=== PATIENT | female | born 1965 | race Caucasian/White ===

== ENCOUNTER 2023-10-20 01:55 | Inpatient (IN) | payer MEDICAID, OTHER ==
[2023-10-20] VITALS (7 sets, daily range): BP systolic 97–128; BP diastolic 51–96; PULSE 98–104; RESP 25–31; TEMP 97.4–97.7
[~2023-10-20] VITALS: Ht 162.6 cm; Wt 107.6 kg
[2023-10-20 03:15] LABS: MEAN CORPUSCULAR HEMOGLOBIN 23.1 pg (28.0-32.0); MEAN CORPUSCULAR HGB CONC 28.7 g/dL (31.0-37.0); MEAN CORPUSCULAR VOLUME 80.5 fL (81.0-99.0); MEAN PLATELET VOLUME 7.9 fl (7.4-10.4); PLATELET 371 x1000/uL (130-400); RED CELL DISTRIBUTION WIDTH 20.4 % (11.6-14.6); WHITE BLOOD COUNT 33.6 x1000/uL (4.5-11.0)
[2023-10-20 03:23] LABS: DIFFERENTIAL COMMENT 1; HEMATOCRIT. 18.5 % (36.0-48.0); HEMOGLOBIN. 5.3 g/dL (12.0-16.0)
[2023-10-20 03:25] LABS: INR 1.3; PROTHROMBIN TIME 13.8 sec (9.6-11.0)
[2023-10-20 03:27] LABS: CHLORIDE 107 mEq/L (98-107); SODIUM 134 mEq/L (136-145)
[2023-10-20 03:29] LABS: CALCIUM 7.7 mg/dL (8.7-10.4)
[2023-10-20 03:32] LABS: HCG SCREEN NEGATIVE
[2023-10-20 03:33] LABS: GLUCOSE 59 mg/dL (70-105)
[2023-10-20 03:35] LABS: ALANINE AMINOTRANSFERASE 146 IU/L (10-49); ALBUMIN 2.7 g/dL (3.2-4.8); ASPARTATE AMINOTRANSFERASE 298 IU/L (<34)
[2023-10-20 03:36] LABS: BILIRUBIN TOTAL 0.2 mg/dL (0.1-1.0); PROTEIN TOTAL 6.5 g/dL (6.0-8.3)
[2023-10-20 04:05] LABS: ETHANOL BLOOD < 10 mg/dL (<10)
[2023-10-20 04:17] LABS: ANISOCYTOSIS 1+; HYPOCHROMASIA 1+; MICROCYTOSIS 1+; PLATELET ESTIMATE NORMAL
[2023-10-20 04:19] LABS: LACTIC ACID 4.8 mmol/L (0.4-2.0); UREA NITROGEN BLOOD 108 mg/dL (9-23)
[2023-10-20 04:20] LABS: CARBON DIOXIDE < 10 mEq/L (21-32); CREATININE 8.3 mg/dL (0.6-1.0); POTASSIUM 6.5 mEq/L (3.5-5.1)
[2023-10-20] MEDS: MORPHINE SULFATE 4 MG/ML INJ (FOR IV/IM USE) IV ONE (04:27)
[2023-10-20] MEDS: MORPHINE SULFATE 4 MG/ML INJ (FOR IV/IM USE) IV NR (04:42)
[2023-10-20] MEDS: SODIUM BICARBONATE 8.4% 1 MEQ/ML 50ML SYR IV NR ×2 (04:47→16:38)
[2023-10-20] MEDS: PIPERACILLIN/TAZO 3.375G/50ML 50 ML IV SCH ×2 (05:07→18:36)
[2023-10-20] MEDS: SODIUM CHLORIDE 0.9% 1,000 ML IV ONE (05:21)
[2023-10-20] MEDS: VANCOMYCIN 1.5GM/250ML 250 ML IV NR (06:05)
[2023-10-20] MEDS ORDERED: CALCIUM GLUCONATE 100MG/ML 10ML VIAL IV ONE (07:30)
[2023-10-20] MEDS: CALCIUM GLUCONATE 1GM PREMIX 50 ML IV NR ×2 (09:08→16:30)
[2023-10-20] MEDS: DEXTROSE 50% WATER 50ML SYRINGE IV NR ×2 (09:57→16:36)
[2023-10-20] MEDS: INSULIN REGULAR (HUMULIN R) 300UNITS/3ML VIAL IV ONE (10:08)
[2023-10-20] MEDS: SODIUM POLYSTYRENE SULFONATE 15 G/60 ML BOT PO NR (10:09)
[2023-10-20] MEDS ORDERED: NALOXONE HCL 0.4MG/ML VIAL IV PRN (12:15)
[2023-10-20] MEDS ORDERED: CLONIDINE 0.1MG TABLET PO PRN (12:15)
[2023-10-20 13:26] LABS: MEAN CORPUSCULAR HEMOGLOBIN 24.7 pg (28.0-32.0); MEAN CORPUSCULAR HGB CONC 30.3 g/dL (31.0-37.0); MEAN CORPUSCULAR VOLUME 81.5 fL (81.0-99.0); PLATELET 337 x1000/uL (130-400); RED CELL DISTRIBUTION WIDTH 20.4 % (11.6-14.6); WHITE BLOOD COUNT 27.6 x1000/uL (4.5-11.0)
[2023-10-20 13:39] LABS: HEMATOCRIT 20.4 % (36.0-48.0); HEMOGLOBIN 6.2 g/dL (12.0-16.0)
[2023-10-20 13:42] LABS: CHLORIDE 108 mEq/L (98-107); POTASSIUM 5.8 mEq/L (3.5-5.1); SODIUM 137 mEq/L (136-145)
[2023-10-20 13:43] LABS: CALCIUM 7.1 mg/dL (8.7-10.4)
[2023-10-20 13:48] LABS: GLUCOSE 58 mg/dL (70-105)
[2023-10-20 13:49] LABS: CREATININE 8.1 mg/dL (0.6-1.0); UREA NITROGEN BLOOD 111 mg/dL (9-23)
[2023-10-20 13:52] LABS: CARBON DIOXIDE < 10 mEq/L (21-32)
[2023-10-20 15:05] LABS: CREATINE KINASE 950 IU/L (34-145)
[2023-10-20 15:20] LABS: HEPATITIS B SURFACE ANTIGEN NEGATIVE (Negative)
[2023-10-20 15:41] LABS: HEPATITIS A AB IGM NEGATIVE (Negative)
[2023-10-20 15:42] LABS: HEPATITIS B CORE AB IGM NEGATIVE (Negative); HEPATITIS C AB REACTIVE (Pos) (Negative)
[2023-10-20] MEDS: INSULIN REGULAR (HUMULIN R) 300UNITS/3ML VIAL IV NR (16:34)
[2023-10-20] MEDS: VANCOMYCIN 500MG PREMIX 100 ML IV SCH (16:35)
[2023-10-20] MEDS: SODIUM BICARBONATE 150 MEQ in DEXTROSE 5% WATER 850 ML IV SCH (16:36)
[2023-10-20] MEDS: CITRIC ACID/SODIUM CITRATE SOLN 30ML UDC PO SCH (16:49)
[2023-10-20] MEDS ORDERED: IPRATROPIUM/ALBUTEROL 0.5-3(2.5)MG/3ML NEB HHN PRN (19:00)
[2023-10-20 19:10] LABS: BG BASE EXCESS -13.5 mmol/L (-2.0-2.0); BG CARBOXYHEMOGLOBIN 0.3 % (0.5-1.5); BG DEOXYHEMOGLOBIN 1.6 % (0.0-5.0); BG FRACTION INSPIRED OXYGEN 40; BG HCO3 ACT 12.2 mmol/L (22.0-26.0); BG METHEMOGLOBIN 0.3 % (0.0-1.5); BG OXYGEN SATURATION 98.4 % (92.0-98.5); BG OXYHEMOGLOBIN 97.8 % (94.0-97.0); BG PCO2 26.8 mmHg (35.0-45.0); BG PH 7.275 (7.350-7.450); BG PO2 142.1 mmHg (75.0-100.0); BG SAMPLE SITE RIGHT RADIAL; BG TOTAL HEMOGLOBIN 5.5 g/dL (12.0-18.0); BG VENT MODE NASAL CANNULA
[2023-10-20] MEDS: MORPHINE SULFATE 2 MG/ML CPJ (NOT FOR IM USE) IV PRN (20:16)
[2023-10-20] MEDS ORDERED: CEFAZOLIN SODIUM 1000MG/VIAL ONE (21:18)
[2023-10-20] MEDS ORDERED: BUPIVACAINE HCL/PF 0.5% (5MG/ML) 10ML ONE (21:31)
[2023-10-20] MEDS ORDERED: LIDOCAINE HCL 1% 20ML VIAL (Pyxis) INJ ONE (21:31)
[2023-10-20 22:22] LABS: POTASSIUM 5.1 mEq/L (3.5-5.1)
[2023-10-20 22:24] LABS: CALCIUM 6.4 mg/dL (8.7-10.4)
[2023-10-20] MEDS ORDERED: METHADONE HCL 5MG TABLET PO NR (22:30)
[2023-10-20 22:32] LABS: CREATININE 8.3 mg/dL (0.6-1.0)
[2023-10-21] VITALS (24 sets, daily range): BP systolic 94–124; BP diastolic 54–99; PULSE 90–103; RESP 14–33; TEMP 97.1–98.4
[2023-10-21] MEDS: METHADONE HCL 10MG TABLET PO NR (00:47)
[2023-10-21] MEDS: HYDROMORPHONE HCL/PF 2MG/ML CPJ IV PRN (05:18)
[2023-10-21 06:04] LABS: MEAN CORPUSCULAR HEMOGLOBIN 25.2 pg (28.0-32.0); MEAN CORPUSCULAR HGB CONC 31.9 g/dL (31.0-37.0); MEAN CORPUSCULAR VOLUME 79.1 fL (81.0-99.0); MEAN PLATELET VOLUME 7.9 fl (7.4-10.4); PLATELET 249 x1000/uL (130-400); RED BLOOD CELL COUNT 2.48 mill/uL (4.2-5.4); RED CELL DISTRIBUTION WIDTH 19.3 % (11.6-14.6); WHITE BLOOD COUNT 24.4 x1000/uL (4.5-11.0)
[2023-10-21 06:17] LABS: ALANINE AMINOTRANSFERASE 419 IU/L (10-49); ALBUMIN 2.4 g/dL (3.2-4.8); ASPARTATE AMINOTRANSFERASE 679 IU/L (<34); CHLORIDE 108 mEq/L (98-107); POTASSIUM 5.2 mEq/L (3.5-5.1); SODIUM 140 mEq/L (136-145)
[2023-10-21 06:18] LABS: CALCIUM 6.1 mg/dL (8.7-10.4); CARBON DIOXIDE 12 mEq/L (21-32)
[2023-10-21 06:23] LABS: GLUCOSE 95 mg/dL (70-105)
[2023-10-21 06:25] LABS: BILIRUBIN TOTAL 0.3 mg/dL (0.1-1.0)
[2023-10-21 06:26] LABS: PROTEIN TOTAL 6.2 g/dL (6.0-8.3)
[2023-10-21 06:29] LABS: CREATININE 8.3 mg/dL (0.6-1.0); UREA NITROGEN BLOOD 123 mg/dL (9-23)
[2023-10-21 06:59] LABS: HEMATOCRIT. 19.6 % (36.0-48.0); HEMOGLOBIN. 6.3 g/dL (12.0-16.0)
[2023-10-21 07:00] LABS: DIFFERENTIAL COMMENT 1
[2023-10-21] MEDS: LIDOCAINE HCL 1% 10 MG/ML 10ML VIAL ONE (09:26)
[2023-10-21] MEDS: CALCIUM ACETATE 667MG CAPSULE PO SCH (12:49)
[2023-10-21 13:58] LABS: ANISOCYTOSIS 2+; HYPOCHROMASIA 1+; PLATELET ESTIMATE NORMAL
[2023-10-21 21:09] LABS: HEMATOCRIT. 23.4 % (36.0-48.0); HEMOGLOBIN. 7.7 g/dL (12.0-16.0); MEAN CORPUSCULAR HEMOGLOBIN 27.1 pg (28.0-32.0); MEAN PLATELET VOLUME 8.2 fl (7.4-10.4); PLATELET 211 x1000/uL (130-400); RED BLOOD CELL COUNT 2.86 mill/uL (4.2-5.4); RED CELL DISTRIBUTION WIDTH 19.1 % (11.6-14.6); WHITE BLOOD COUNT 23.1 x1000/uL (4.5-11.0)
[2023-10-21 21:11] LABS: DIFFERENTIAL COMMENT 1
[2023-10-21 21:24] LABS: POTASSIUM 4.2 mEq/L (3.5-5.1)
[2023-10-21 21:36] LABS: CREATININE 6.9 mg/dL (0.6-1.0)
[2023-10-21 21:37] LABS: CALCIUM 5.9 mg/dL (8.7-10.4)
[2023-10-21] MEDS: EPOETIN ALFA 4000UNITS/ML VIAL SUBCUT SCH (21:45)
[2023-10-21 22:26] LABS: ANISOCYTOSIS 2+; HYPOCHROMASIA 1+; PLATELET ESTIMATE NORMAL
[2023-10-21 22:28] LABS: OVALOCYTES 1+
[2023-10-22] VITALS (21 sets, daily range): BP systolic 91–117; BP diastolic 59–84; PULSE 89–104; RESP 16–35; TEMP 97–99.5
[2023-10-22 06:43] LABS: CALCIUM 5.8 mg/dL (8.7-10.4); CREATININE 7.1 mg/dL (0.6-1.0)
[2023-10-22] MEDS ORDERED: METHADONE HCL 10MG TABLET PO SCH (09:00)
[2023-10-22] MEDS: VANCOMYCIN 750MG PREMIX 150 ML IV SCH (16:33)
[2023-10-22] MEDS: CALCIUM ACETATE 667MG CAPSULE PO SCH (16:33)
[2023-10-22] MEDS: METHADONE HCL 10MG TABLET PO SCH (16:35)
[2023-10-22 22:23] LABS: PHOSPHORUS 4.9 mg/dL (2.5-4.9)
[2023-10-23] VITALS: BP 99/67; PULSE 90; RESP 19; TEMP 98
[2023-10-23 04:00] VITALS: BP 102/67; PULSE 96; RESP 21; TEMP 97.5
[2023-10-23 05:43] LABS: HEMATOCRIT. 26.9 % (36.0-48.0); HEMOGLOBIN. 8.8 g/dL (12.0-16.0); MEAN CORPUSCULAR HEMOGLOBIN 26.7 pg (28.0-32.0); MEAN CORPUSCULAR HGB CONC 32.8 g/dL (31.0-37.0); MEAN CORPUSCULAR VOLUME 81.5 fL (81.0-99.0); MEAN PLATELET VOLUME 8.1 fl (7.4-10.4); PLATELET 142 x1000/uL (130-400); RED CELL DISTRIBUTION WIDTH 19.9 % (11.6-14.6); WHITE BLOOD COUNT 16.2 x1000/uL (4.5-11.0)
[2023-10-23 05:50] LABS: CALCIUM 6.7 mg/dL (8.7-10.4); CARBON DIOXIDE 26 mEq/L (21-32); CHLORIDE 100 mEq/L (98-107); POTASSIUM 3.9 mEq/L (3.5-5.1); SODIUM 138 mEq/L (136-145)
[2023-10-23 05:56] LABS: GLUCOSE 82 mg/dL (70-105); UREA NITROGEN BLOOD 79 mg/dL (9-23)
[2023-10-23 05:59] LABS: PHOSPHORUS 4.8 mg/dL (2.5-4.9)
[2023-10-23 06:04] LABS: CREATININE 5.5 mg/dL (0.6-1.0)
[2023-10-23 06:36] LABS: DIFFERENTIAL COMMENT 1
[2023-10-23 08:00] VITALS: BP 99/87; PULSE 99; RESP 23; TEMP 97.7
[2023-10-23] MEDS: CALCIUM ACETATE 667MG CAPSULE PO SCH (08:32)
[2023-10-23 12:00] VITALS: BP 96/61; PULSE 101; RESP 25; TEMP 98.5
[2023-10-23] MEDS: CEFAZOLIN 1000MG PREMIX 50 ML IV SCH (13:28)
[2023-10-23] MEDS: THROAT LOZENGES-BENZOCAINE/MENTH/CETYLPYRD CL LOZENGES MM PRN (13:28)
[2023-10-23 13:31] LABS: ANISOCYTOSIS 2+; PLATELET ESTIMATE NORMAL
[2023-10-23] MEDS: MAGNESIUM 2 G PREMIX 50 ML IV SCH (13:31)
[2023-10-23 16:00] VITALS: BP 96/63; PULSE 94; RESP 19
[2023-10-23 20:00] VITALS: BP 101/77; PULSE 87; RESP 16; TEMP 97.5
[2023-10-23] MEDS: METHYL SALICYLATE/MENTHOL CREAM 85GM TOP PRN (21:43)
[2023-10-24] VITALS (8 sets, daily range): BP systolic 102–121; BP diastolic 65–81; PULSE 82–99; RESP 16–23; TEMP 97–97.6
[2023-10-24 08:47] LABS: POTASSIUM 4.1 mEq/L (3.5-5.1)
[2023-10-24 08:48] LABS: CALCIUM 7.2 mg/dL (8.7-10.4)
[2023-10-24 08:53] LABS: CREATININE 6.4 mg/dL (0.6-1.0)
[2023-10-24 11:14] LABS: ALBUMIN 2.5 g/dL (3.2-4.8)
[2023-10-24 11:17] LABS: PREALBUMIN < 5.0 mg/dl (10.0-40.0)
[2023-10-24] MEDS ORDERED: ROCURONIUM BROMIDE 10MG/ML VIAL 5ML IV ONE (15:29)
[2023-10-24] MEDS ORDERED: DEXAMETHASONE 4MG/ML 1ML VIAL ONE (15:29)
[2023-10-24] MEDS ORDERED: ONDANSETRON HCL 4MG/2ML INJ ONE (15:29)
[2023-10-24] MEDS ORDERED: PROPOFOL 200MG/20ML VIAL IV ONE (15:30)
[2023-10-24] MEDS ORDERED: LIDOCAINE HCL 1% 10 MG/ML 10ML VIAL ONE (15:30)
[2023-10-24] MEDS ORDERED: FENTANYL CITRATE/PF 50MCG/ML 2ML VIAL ONE (15:33)
[2023-10-24] MEDS ORDERED: MIDAZOLAM HCL 2 MG/2 ML VIAL ONE (15:33)
[2023-10-24] MEDS ORDERED: METOCLOPRAMIDE HCL 10MG/2ML VIAL ONE (15:56)
[2023-10-24] MEDS ORDERED: ONDANSETRON HCL 4MG/2ML INJ IV PRN (16:45)
[2023-10-24] MEDS ORDERED: FENTANYL CITRATE/PF 50MCG/ML 2ML VIAL IV PRN (16:45)
[2023-10-24] MEDS ORDERED: HYDROMORPHONE HCL/PF 2MG/ML CPJ IV PRN (16:45)
[2023-10-24] MEDS ORDERED: SUGAMMADEX SODIUM 200 MG/2 ML VIAL IV NR (17:00)
[2023-10-24] MEDS: HYDROMORPHONE HCL/PF 2MG/ML CPJ IV PRN (17:39)
[2023-10-25] VITALS (18 sets, daily range): BP systolic 95–161; BP diastolic 63–97; PULSE 81–100; RESP 13–20; TEMP 97.2–98.6
[2023-10-25 07:08] LABS: POTASSIUM 5.4 mEq/L (3.5-5.1)
[2023-10-25 07:09] LABS: CALCIUM 7.2 mg/dL (8.7-10.4)
[2023-10-25 09:58] LABS: HEMATOCRIT. 28.8 % (36.0-48.0); HEMOGLOBIN. 9.1 g/dL (12.0-16.0); MEAN CORPUSCULAR HEMOGLOBIN 26.6 pg (28.0-32.0); MEAN CORPUSCULAR HGB CONC 31.7 g/dL (31.0-37.0); MEAN CORPUSCULAR VOLUME 83.8 fL (81.0-99.0); MEAN PLATELET VOLUME 8.8 fl (7.4-10.4); PLATELET 114 x1000/uL (130-400); RED BLOOD CELL COUNT 3.44 mill/uL (4.2-5.4); RED CELL DISTRIBUTION WIDTH 21.1 % (11.6-14.6); WHITE BLOOD COUNT 16.8 x1000/uL (4.5-11.0)
[2023-10-25 10:03] LABS: DIFFERENTIAL COMMENT 1
[2023-10-25 13:58] LABS: PLATELET ESTIMATE DECREASED
[2023-10-25 13:59] LABS: ANISOCYTOSIS 2+; HYPOCHROMASIA 1+
[2023-10-25 15:06] LABS: A/G RATIO 0.3 (0.7-1.7); ALBUMIN 1.3 g/dL (2.9-4.4); ALPHA-1-GLOBULIN 0.6 g/dL (0.0-0.4); ALPHA-2-GLOBULIN 1.1 g/dL (0.4-1.0); GAMMA GLOBULINS 1.5 g/dL (0.4-1.8); GLOBULIN TOTAL 4.1 g/dL (2.2-3.9); M-SPIKE Not Observed g/dL (Not Observed); TOTAL PROTEIN SERUM 5.4 g/dL (6.0-8.5)
[2023-10-25] MEDS: SODIUM HYPOCHLORITE (0.25%) 480ML SOLUTION (HALF STRENGTH) TOP SCH (15:41)
[2023-10-26] VITALS (58 sets, daily range): BP systolic 57–130; BP diastolic 34–110; PULSE 88–131; RESP 11–28; TEMP 97–98.9; O2SAT 98
[2023-10-26 06:52] LABS: HEMATOCRIT. 25.7 % (36.0-48.0); HEMOGLOBIN. 8.2 g/dL (12.0-16.0); MEAN CORPUSCULAR HEMOGLOBIN 26.4 pg (28.0-32.0); MEAN CORPUSCULAR HGB CONC 31.9 g/dL (31.0-37.0); MEAN CORPUSCULAR VOLUME 82.9 fL (81.0-99.0); MEAN PLATELET VOLUME 8.8 fl (7.4-10.4); PLATELET 134 x1000/uL (130-400); RED CELL DISTRIBUTION WIDTH 21.1 % (11.6-14.6); WHITE BLOOD COUNT 15.9 x1000/uL (4.5-11.0)
[2023-10-26 07:11] LABS: POTASSIUM 5.6 mEq/L (3.5-5.1)
[2023-10-26 07:12] LABS: CALCIUM 7.4 mg/dL (8.7-10.4)
[2023-10-26 07:30] LABS: DIFFERENTIAL COMMENT 1
[2023-10-26] MEDS ORDERED: PROPOFOL 200MG/20ML VIAL IV ONE (07:56)
[2023-10-26] MEDS ORDERED: FENTANYL CITRATE/PF 50MCG/ML 2ML VIAL ONE (07:57)
[2023-10-26] MEDS ORDERED: MIDAZOLAM HCL 2 MG/2 ML VIAL ONE (07:57)
[2023-10-26] MEDS ORDERED: ROCURONIUM BROMIDE 10MG/ML VIAL 5ML IV ONE (08:07)
[2023-10-26] MEDS ORDERED: GLYCOPYRROLATE 0.2 MG/ML 2ML VIAL ONE ×2 (08:35)
[2023-10-26] MEDS ORDERED: NEOSTIGMINE METHYLSULFATE 1MG/ML 10 ML VIAL ONE (08:35)
[2023-10-26 10:19] LABS: BG BASE EXCESS -7.4 mmol/L (-2.0-2.0); BG CARBOXYHEMOGLOBIN 0.3 % (0.5-1.5); BG DEOXYHEMOGLOBIN 2.4 % (0.0-5.0); BG FRACTION INSPIRED OXYGEN 100; BG HCO3 ACT 22.1 mmol/L (22.0-26.0); BG METHEMOGLOBIN 0.3 % (0.0-1.5); BG OXYGEN SATURATION 97.6 % (92.0-98.5); BG PCO2 68.2 mmHg (35.0-45.0); BG PH 7.128 (7.350-7.450); BG PO2 139.2 mmHg (75.0-100.0); BG SAMPLE SITE RIGHT RADIAL; BG TOTAL HEMOGLOBIN 9.5 g/dL (12.0-18.0); BG VENT MODE VENT - AC
[2023-10-26 11:35] LABS: BG BASE EXCESS -4.1 mmol/L (-2.0-2.0); BG CARBOXYHEMOGLOBIN 0.1 % (0.5-1.5); BG DEOXYHEMOGLOBIN 0.7 % (0.0-5.0); BG FRACTION INSPIRED OXYGEN 100; BG HCO3 ACT 23.2 mmol/L (22.0-26.0); BG METHEMOGLOBIN 0.2 % (0.0-1.5); BG OXYGEN SATURATION 99.3 % (92.0-98.5); BG PCO2 53.7 mmHg (35.0-45.0); BG PH 7.254 (7.350-7.450); BG PO2 252.1 mmHg (75.0-100.0); BG SAMPLE SITE RIGHT RADIAL; BG TOTAL HEMOGLOBIN 9.8 g/dL (12.0-18.0); BG VENT MODE VENT - AC
[2023-10-26] MEDS ORDERED: NOREPINEPHRINE 8MG/250ML PMX 250 ML IV PRN ×2 (12:15→14:30)
[2023-10-26 12:18] LABS: ANISOCYTOSIS 2+; PLATELET ESTIMATE NORMAL
[2023-10-26] MEDS ORDERED: IPRATROPIUM/ALBUTEROL 0.5-3(2.5)MG/3ML NEB HHN NR (12:30)
[2023-10-26 14:36] LABS: BG BASE EXCESS -3.6 mmol/L (-2.0-2.0); BG CARBOXYHEMOGLOBIN 0.3 % (0.5-1.5); BG DEOXYHEMOGLOBIN 1.4 % (0.0-5.0); BG FRACTION INSPIRED OXYGEN 60; BG HCO3 ACT 20.5 mmol/L (22.0-26.0); BG METHEMOGLOBIN 0.2 % (0.0-1.5); BG OXYGEN SATURATION 98.6 % (92.0-98.5); BG OXYHEMOGLOBIN 98.1 % (94.0-97.0); BG PCO2 33.2 mmHg (35.0-45.0); BG PH 7.409 (7.350-7.450); BG PO2 164.6 mmHg (75.0-100.0); BG SAMPLE SITE RIGHT RADIAL; BG TOTAL HEMOGLOBIN 9.3 g/dL (12.0-18.0); BG TOTAL RESPIRATORY RATE 24 b/min; BG VENT MODE VENT - AC
[2023-10-26] MEDS: IPRATROPIUM/ALBUTEROL 0.5-3(2.5)MG/3ML NEB HHN SCH (16:21)
[2023-10-26 19:21] LABS: BG BASE EXCESS 0.4 mmol/L (-2.0-2.0); BG CARBOXYHEMOGLOBIN 0.3 % (0.5-1.5); BG DEOXYHEMOGLOBIN 2.2 % (0.0-5.0); BG FRACTION INSPIRED OXYGEN 40; BG HCO3 ACT 24.9 mmol/L (22.0-26.0); BG METHEMOGLOBIN 0.3 % (0.0-1.5); BG OXYGEN SATURATION 97.8 % (92.0-98.5); BG OXYHEMOGLOBIN 97.2 % (94.0-97.0); BG PCO2 39.4 mmHg (35.0-45.0); BG PH 7.419 (7.350-7.450); BG PO2 113.4 mmHg (75.0-100.0); BG SAMPLE SITE RIGHT RADIAL; BG VENT MODE VENT - CPAP
[2023-10-26] MEDS ORDERED: NALOXONE HCL 0.4MG/ML VIAL IV PRN (21:45)
[2023-10-26] MEDS: METHADONE HCL 10MG TABLET PO SCH (21:48)
[2023-10-26] MEDS: HYDROMORPHONE HCL/PF 2MG/ML CPJ IV PRN (21:54)
[2023-10-27] VITALS (48 sets, daily range): BP systolic 96–124; BP diastolic 64–81; PULSE 76–114; RESP 11–32; TEMP 97.4–98.2; O2SAT 97–99
[2023-10-27 08:18] LABS: HEMATOCRIT. 23.4 % (36.0-48.0); HEMOGLOBIN. 7.4 g/dL (12.0-16.0); MEAN CORPUSCULAR HEMOGLOBIN 27.1 pg (28.0-32.0); MEAN CORPUSCULAR HGB CONC 31.7 g/dL (31.0-37.0); MEAN CORPUSCULAR VOLUME 85.6 fL (81.0-99.0); MEAN PLATELET VOLUME 8.2 fl (7.4-10.4); PLATELET 95 x1000/uL (130-400); RED BLOOD CELL COUNT 2.73 mill/uL (4.2-5.4); RED CELL DISTRIBUTION WIDTH 21.3 % (11.6-14.6); WHITE BLOOD COUNT 15.1 x1000/uL (4.5-11.0)
[2023-10-27 08:24] LABS: DIFFERENTIAL COMMENT 1
[2023-10-27 08:27] LABS: POTASSIUM 4.9 mEq/L (3.5-5.1)
[2023-10-27 08:28] LABS: CALCIUM 7.1 mg/dL (8.7-10.4)
[2023-10-27 08:33] LABS: CREATININE 4.7 mg/dL (0.6-1.0)
[2023-10-27 08:46] LABS: NUCLEATED RED BLOOD CELLS 1 /100 WBC; PLATELET ESTIMATE SLIGHTLY DECREASED
[2023-10-27 08:47] LABS: ANISOCYTOSIS 2+; TARGET CELLS 1+
[2023-10-28] VITALS (60 sets, daily range): BP systolic 99–149; BP diastolic 70–114; PULSE 89–114; RESP 15–38; TEMP 97.2–98.6
[2023-10-28] MEDS: ONDANSETRON HCL 4MG/2ML INJ IV PRN (03:04)
[2023-10-28] MEDS ORDERED: TETRACAINE/BENZOCAINE/BUTAMBEN 20 GM SPRAY MM ONE (11:00)
[2023-10-28] MEDS ORDERED: LIDOCAINE 2% 6ML GLYDO MM ONE (11:00)
[2023-10-28 15:31] LABS: HEMATOCRIT. 21.6 % (36.0-48.0); HEMOGLOBIN. 7.1 g/dL (12.0-16.0); MEAN CORPUSCULAR HEMOGLOBIN 27.4 pg (28.0-32.0); MEAN CORPUSCULAR HGB CONC 32.8 g/dL (31.0-37.0); MEAN CORPUSCULAR VOLUME 83.6 fL (81.0-99.0); MEAN PLATELET VOLUME 8.2 fl (7.4-10.4); PLATELET 119 x1000/uL (130-400); RED BLOOD CELL COUNT 2.58 mill/uL (4.2-5.4); RED CELL DISTRIBUTION WIDTH 20.8 % (11.6-14.6); WHITE BLOOD COUNT 19.3 x1000/uL (4.5-11.0)
[2023-10-28 15:36] LABS: POTASSIUM 3.8 mEq/L (3.5-5.1)
[2023-10-28 15:37] LABS: CALCIUM 6.8 mg/dL (8.7-10.4); DIFFERENTIAL COMMENT 1
[2023-10-28 17:12] LABS: ANISOCYTOSIS 1+; PLATELET ESTIMATE DECREASED
[2023-10-29] VITALS (22 sets, daily range): BP systolic 79–110; BP diastolic 42–92; PULSE 92–104; RESP 13–24; TEMP 97–98.6; O2SAT 91–96
[2023-10-29] MEDS ORDERED: ONDANSETRON 4MG ODT PO PRN (07:00)
[2023-10-29] MEDS ORDERED: TETRACAINE/BENZOCAINE/BUTAMBEN 20 GM SPRAY MM ONE (08:07)
[2023-10-29] MEDS ORDERED: MIDAZOLAM HCL 2 MG/2 ML VIAL ONE ×2 (08:48→09:11)
[2023-10-29] MEDS ORDERED: FENTANYL CITRATE/PF 50MCG/ML 2ML VIAL ONE (08:48)
[2023-10-29] MEDS ORDERED: ONDANSETRON HCL 4MG/2ML INJ ONE (08:49)
[2023-10-29 11:37] LABS: POTASSIUM 4.8 mEq/L (3.5-5.1)
[2023-10-29 11:39] LABS: CALCIUM 7.3 mg/dL (8.7-10.4); MEAN CORPUSCULAR HEMOGLOBIN 26.6 pg (28.0-32.0); MEAN CORPUSCULAR HGB CONC 31.6 g/dL (31.0-37.0); MEAN CORPUSCULAR VOLUME 84.1 fL (81.0-99.0); MEAN PLATELET VOLUME 8.3 fl (7.4-10.4); PLATELET 142 x1000/uL (130-400); RED CELL DISTRIBUTION WIDTH 21.3 % (11.6-14.6); WHITE BLOOD COUNT 21.4 x1000/uL (4.5-11.0)
[2023-10-29 11:42] LABS: DIFFERENTIAL COMMENT 1
[2023-10-29 11:44] LABS: HEMOGLOBIN. 6.9 g/dL (12.0-16.0)
[2023-10-29 11:45] LABS: CREATININE 5.1 mg/dL (0.6-1.0); HEMATOCRIT. 21.9 % (36.0-48.0)
[2023-10-29 19:48] LABS: PLATELET ESTIMATE NORMAL
[2023-10-29 19:49] LABS: ANISOCYTOSIS 2+; HYPOCHROMASIA 1+; OVALOCYTES 1+
[2023-10-29] MEDS: VANCOMYCIN 2,000 MG in DEXT 5% WATER 500 ML IV NR (22:21)
[2023-10-30] VITALS (30 sets, daily range): BP systolic 89–122; BP diastolic 16–92; PULSE 90–111; RESP 13–30; TEMP 97.4–98.6; O2SAT 94–98
[2023-10-30 06:45] LABS: POTASSIUM 5.3 mEq/L (3.5-5.1)
[2023-10-30 06:46] LABS: CALCIUM 7.2 mg/dL (8.7-10.4)
[2023-10-30 06:48] LABS: HEMATOCRIT. 22.9 % (36.0-48.0); HEMOGLOBIN. 7.3 g/dL (12.0-16.0); MEAN CORPUSCULAR HEMOGLOBIN 26.7 pg (28.0-32.0); MEAN CORPUSCULAR HGB CONC 32.1 g/dL (31.0-37.0); MEAN CORPUSCULAR VOLUME 83.1 fL (81.0-99.0); MEAN PLATELET VOLUME 8.5 fl (7.4-10.4); PLATELET 142 x1000/uL (130-400); RED BLOOD CELL COUNT 2.75 mill/uL (4.2-5.4); RED CELL DISTRIBUTION WIDTH 20.1 % (11.6-14.6); WHITE BLOOD COUNT 18.9 x1000/uL (4.5-11.0)
[2023-10-30 06:49] LABS: DIFFERENTIAL COMMENT 1
[2023-10-30 06:52] LABS: CREATININE 5.8 mg/dL (0.6-1.0)
[2023-10-30] MEDS ORDERED: TETRACAINE/BENZOCAINE/BUTAMBEN 20 GM SPRAY MM ONE (13:03)
[2023-10-30] MEDS ORDERED: LIDOCAINE 2% 6ML GLYDO MM ONE (13:03)
[2023-10-30] MEDS ORDERED: PROPOFOL 200MG/20ML VIAL IV ONE (14:08)
[2023-10-30 16:57] LABS: HYPOCHROMASIA 1+; PLATELET ESTIMATE NORMAL; TOXIC GRANULATION 1+
[2023-10-30] MEDS: EPOETIN ALFA 4000UNITS/ML VIAL SUBCUT SCH (21:07)
[2023-10-31] VITALS (24 sets, daily range): BP systolic 86–110; BP diastolic 50–92; PULSE 78–110; RESP 14–23; TEMP 97.4–98.7; O2SAT 92–93
[2023-10-31 06:54] LABS: HEMATOCRIT. 24.9 % (36.0-48.0); HEMOGLOBIN. 8.1 g/dL (12.0-16.0); MEAN CORPUSCULAR HEMOGLOBIN 27.1 pg (28.0-32.0); MEAN CORPUSCULAR HGB CONC 32.4 g/dL (31.0-37.0); MEAN CORPUSCULAR VOLUME 83.7 fL (81.0-99.0); MEAN PLATELET VOLUME 8.8 fl (7.4-10.4); PLATELET 147 x1000/uL (130-400); RED BLOOD CELL COUNT 2.97 mill/uL (4.2-5.4); RED CELL DISTRIBUTION WIDTH 19.3 % (11.6-14.6); WHITE BLOOD COUNT 15.4 x1000/uL (4.5-11.0)
[2023-10-31 07:07] LABS: DIFFERENTIAL COMMENT 1
[2023-10-31 07:18] LABS: CHLORIDE 102 mEq/L (98-107); POTASSIUM 4.9 mEq/L (3.5-5.1); SODIUM 137 mEq/L (136-145)
[2023-10-31 07:19] LABS: CARBON DIOXIDE 26 mEq/L (21-32)
[2023-10-31 07:24] LABS: GLUCOSE 62 mg/dL (70-105)
[2023-10-31 07:25] LABS: UREA NITROGEN BLOOD 70 mg/dL (9-23)
[2023-10-31 07:27] LABS: INR 1.4; PROTHROMBIN TIME 14.9 sec (9.6-11.0)
[2023-10-31] MEDS: DEXTROSE 5% WATER 1,000 ML IV SCH (08:21)
[2023-10-31] MEDS ORDERED: LIDOCAINE HCL 1% 20ML VIAL (Pyxis) INJ ONE (11:50)
[2023-10-31] MEDS ORDERED: BUPIVACAINE HCL/PF 0.5% (5MG/ML) 10ML ONE (11:51)
[2023-10-31] MEDS ORDERED: POLYMYXIN B SULFATE 500000 UNITS/VIAL ONE (11:52)
[2023-10-31] MEDS ORDERED: PROPOFOL 200MG/20ML VIAL IV ONE (12:54)
[2023-10-31] MEDS ORDERED: MIDAZOLAM HCL 2 MG/2 ML VIAL ONE (12:56)
[2023-10-31] MEDS ORDERED: ALBUMIN HUMAN 12.5GM/50ML (25%) IV ONE (13:26)
[2023-10-31] MEDS ORDERED: PROPOFOL 10MG/ML 100ML 100 ML IV ONE (13:28)
[2023-10-31] MEDS ORDERED: CEFAZOLIN SODIUM 1000MG/VIAL ONE (13:46)
[2023-10-31] MEDS ORDERED: SUCCINYLCHOLINE CHLORIDE 200MG/10ML IV ONE (13:46)
[2023-10-31] MEDS ORDERED: ONDANSETRON HCL 4MG/2ML INJ ONE (13:46)
[2023-10-31] MEDS ORDERED: ROCURONIUM BROMIDE 10MG/ML VIAL 5ML IV ONE (13:46)
[2023-10-31] MEDS ORDERED: DEXAMETHASONE 4MG/ML 1ML VIAL ONE (13:46)
[2023-10-31] MEDS: PROPOFOL 10MG/ML 100ML 100 ML IV PRN (14:41)
[2023-10-31] MEDS ORDERED: MEPERIDINE HCL/PF 25MG/ML CPJ IV PRN (14:45)
[2023-10-31] MEDS ORDERED: ONDANSETRON HCL 4MG/2ML INJ IV PRN (14:45)
[2023-10-31 16:20] LABS: PLATELET ESTIMATE NORMAL
[2023-10-31 16:21] LABS: ANISOCYTOSIS 1+
[2023-10-31 18:22] LABS: BG BASE EXCESS -4.3 mmol/L (-2.0-2.0); BG CARBOXYHEMOGLOBIN 0.3 % (0.5-1.5); BG DEOXYHEMOGLOBIN 7.8 % (0.0-5.0); BG FRACTION INSPIRED OXYGEN 50; BG METHEMOGLOBIN 0.3 % (0.0-1.5); BG OXYGEN SATURATION 92.2 % (92.0-98.5); BG OXYHEMOGLOBIN 91.6 % (94.0-97.0); BG PCO2 52.6 mmHg (35.0-45.0); BG PH 7.258 (7.350-7.450); BG PO2 76.2 mmHg (75.0-100.0); BG SAMPLE SITE RIGHT RADIAL; BG TOTAL RESPIRATORY RATE 17 b/min; BG VENT MODE VENT - AC
[2023-10-31] MEDS: HYDROMORPHONE HCL/PF 2MG/ML CPJ IV PRN (19:11)
[2023-11-01] VITALS (85 sets, daily range): BP systolic 88–131; BP diastolic 44–89; PULSE 62–101; RESP 12–28; TEMP 97.6–98.9
[2023-11-01 06:58] LABS: HEMATOCRIT. 21.4 % (36.0-48.0); MEAN CORPUSCULAR HEMOGLOBIN 27.8 pg (28.0-32.0); MEAN CORPUSCULAR HGB CONC 32.8 g/dL (31.0-37.0); MEAN CORPUSCULAR VOLUME 84.9 fL (81.0-99.0); MEAN PLATELET VOLUME 8.6 fl (7.4-10.4); PLATELET 142 x1000/uL (130-400); RED BLOOD CELL COUNT 2.52 mill/uL (4.2-5.4); RED CELL DISTRIBUTION WIDTH 19.3 % (11.6-14.6); WHITE BLOOD COUNT 13.4 x1000/uL (4.5-11.0)
[2023-11-01 07:15] LABS: DIFFERENTIAL COMMENT 1; POTASSIUM 5.8 mEq/L (3.5-5.1)
[2023-11-01 07:30] LABS: CREATININE 5.6 mg/dL (0.6-1.0)
[2023-11-01 08:11] LABS: BG SAMPLE SITE RIGHT RADIAL
[2023-11-01 08:12] LABS: BG FRACTION INSPIRED OXYGEN 60; BG PEEP (cmH2O) 5 cmH2O; BG TIDAL VOLUME(mL) 500 mL; BG VENT MODE VENT A/C; BG VENT RATE 20 set
[2023-11-01 08:13] LABS: BG PCO2 37.6 mmHg (35.0-45.0); BG PO2 77.6 mmHg (75.0-100.0); BG TOTAL RESPIRATORY RATE 20 b/min
[2023-11-01 08:14] LABS: BG HCO3 ACT 21.7 mmol/L (22.0-26.0)
[2023-11-01 08:15] LABS: BG DEOXYHEMOGLOBIN 5.8 % (0.0-5.0); BG OXYGEN SATURATION 94.2 % (92.0-98.5); BG OXYHEMOGLOBIN 93.6 % (94.0-97.0)
[2023-11-01] MEDS: SODIUM POLYSTYRENE SULFONATE 15 G/60 ML BOT PO NR (08:45)
[2023-11-01 09:42] LABS: BG CARBOXYHEMOGLOBIN 0.3 % (0.5-1.5); BG METHEMOGLOBIN 0.3 % (0.0-1.5)
[2023-11-01 16:34] LABS: ANISOCYTOSIS 2+; PLATELET ESTIMATE NORMAL
[2023-11-01] MEDS: VANCOMYCIN 1GM/200ML PMX (BAXTER) IV NR (17:49)
[2023-11-01 21:48] LABS: HEMATOCRIT 24.6 % (36.0-48.0); HEMOGLOBIN 8.1 g/dL (12.0-16.0)
[2023-11-02] VITALS (24 sets, daily range): BP systolic 65–119; BP diastolic 15–84; PULSE 88–103; RESP 17–41; TEMP 97.4–98.3
[2023-11-02 13:30] LABS: HEMATOCRIT. 25.9 % (36.0-48.0); HEMOGLOBIN. 8.3 g/dL (12.0-16.0); MEAN CORPUSCULAR HEMOGLOBIN 26.9 pg (28.0-32.0); MEAN CORPUSCULAR HGB CONC 32.1 g/dL (31.0-37.0); MEAN CORPUSCULAR VOLUME 83.9 fL (81.0-99.0); MEAN PLATELET VOLUME 8.3 fl (7.4-10.4); PLATELET 135 x1000/uL (130-400); RED BLOOD CELL COUNT 3.08 mill/uL (4.2-5.4); RED CELL DISTRIBUTION WIDTH 18.5 % (11.6-14.6); WHITE BLOOD COUNT 10.4 x1000/uL (4.5-11.0)
[2023-11-02 13:33] LABS: DIFFERENTIAL COMMENT 1
[2023-11-02 13:34] LABS: POTASSIUM 4.7 mEq/L (3.5-5.1)
[2023-11-02 13:35] LABS: CALCIUM 7.7 mg/dL (8.7-10.4)
[2023-11-02 13:45] LABS: CREATININE 5.3 mg/dL (0.6-1.0)
[2023-11-02 13:58] LABS: ANISOCYTOSIS 2+; PLATELET ESTIMATE NORMAL
[2023-11-02] MEDS: SIMETHICONE 80MG TABLET CHEW PO PRN (13:59)
[2023-11-02] MEDS: MORPHINE SULFATE 4 MG/ML INJ (FOR IV/IM USE) IV PRN (21:19)
[2023-11-03] VITALS (22 sets, daily range): BP systolic 92–143; BP diastolic 56–104; PULSE 86–101; RESP 15–28; TEMP 97.4–98.8
[2023-11-03 05:48] LABS: BASOPHILS % 0.9 % (0.0-2.0); EOSINOPHILS % 4.5 % (0.0-5.0); HEMOGLOBIN. 8.9 g/dL (12.0-16.0); LYMPHOCYTES % 8.9 % (20.0-50.0); MEAN CORPUSCULAR VOLUME 84.9 fL (81.0-99.0); MEAN PLATELET VOLUME 8.7 fl (7.4-10.4); NEUTROPHILS % 79.7 % (40.0-76.0); PLATELET 144 x1000/uL (130-400); RED BLOOD CELL COUNT 3.18 mill/uL (4.2-5.4); RED CELL DISTRIBUTION WIDTH 18.6 % (11.6-14.6); WHITE BLOOD COUNT 7.9 x1000/uL (4.5-11.0)
[2023-11-03 06:07] LABS: POTASSIUM 4.9 mEq/L (3.5-5.1)
[2023-11-03 06:08] LABS: CALCIUM 7.7 mg/dL (8.7-10.4)
[2023-11-03 06:16] LABS: CREATININE 5.8 mg/dL (0.6-1.0)
[2023-11-03] MEDS ORDERED: NALOXONE HCL 0.4MG/ML VIAL IV PRN (10:30)
[2023-11-03] MEDS ORDERED: CEFEPIME 1GM IN DEXT 5% 50ML IV SCH (20:30)
[2023-11-03] MEDS: CEFEPIME 1GM/50ML 50 ML IV SCH (21:58)
[2023-11-04] VITALS: BP 111/56; PULSE 87; RESP 20; TEMP 97.8
[2023-11-04 04:00] VITALS: BP 109/56; PULSE 93; RESP 18; TEMP 98.6
[2023-11-04 06:19] LABS: BASOPHILS % 0.9 % (0.0-2.0); EOSINOPHILS % 5.5 % (0.0-5.0); HEMATOCRIT. 25.4 % (36.0-48.0); HEMOGLOBIN. 8.4 g/dL (12.0-16.0); LYMPHOCYTES % 12.7 % (20.0-50.0); MEAN CORPUSCULAR HEMOGLOBIN 27.8 pg (28.0-32.0); MEAN CORPUSCULAR HGB CONC 33.1 g/dL (31.0-37.0); MEAN CORPUSCULAR VOLUME 83.8 fL (81.0-99.0); MEAN PLATELET VOLUME 8.6 fl (7.4-10.4); MONOCYTES % 6.4 % (2.0-8.0); NEUTROPHILS % 74.5 % (40.0-76.0); PLATELET 146 x1000/uL (130-400); RED BLOOD CELL COUNT 3.03 mill/uL (4.2-5.4); RED CELL DISTRIBUTION WIDTH 18.7 % (11.6-14.6); WHITE BLOOD COUNT 6.7 x1000/uL (4.5-11.0)
[2023-11-04 06:27] LABS: INR 1.3; PROTHROMBIN TIME 14.5 sec (9.6-11.0)
[2023-11-04 06:33] LABS: CALCIUM 7.9 mg/dL (8.7-10.4); POTASSIUM 4.3 mEq/L (3.5-5.1)
[2023-11-04 06:42] LABS: CREATININE 5.1 mg/dL (0.6-1.0); PHOSPHORUS 5.3 mg/dL (2.5-4.9)
[2023-11-04 08:00] VITALS: BP 110/70; PULSE 93; RESP 21; TEMP 99
[2023-11-04 12:00] VITALS: BP 102/60; PULSE 91; RESP 20; TEMP 97.7
[2023-11-04 16:00] VITALS: BP 100/57; PULSE 88; RESP 22; TEMP 97
[2023-11-04 20:00] VITALS: BP 113/58; PULSE 89; RESP 20; TEMP 97.8
[2023-11-05] VITALS (25 sets, daily range): BP systolic 92–130; BP diastolic 50–79; PULSE 80–97; RESP 12–20; TEMP 96.3–98.4
[2023-11-05] MEDS ORDERED: LIDOCAINE HCL 1% 10 MG/ML 10ML VIAL ONE (08:33)
[2023-11-05] MEDS: FENTANYL CITRATE/PF 50MCG/ML 2ML VIAL IV ONE (10:00)
[2023-11-05] MEDS ORDERED: FENTANYL CITRATE/PF 50MCG/ML 2ML VIAL ONE (10:08)
[2023-11-05 12:05] LABS: HEMATOCRIT 24.9 % (36.0-48.0); HEMOGLOBIN 8.2 g/dL (12.0-16.0); MEAN CORPUSCULAR HEMOGLOBIN 27.9 pg (28.0-32.0); MEAN CORPUSCULAR HGB CONC 32.9 g/dL (31.0-37.0); MEAN CORPUSCULAR VOLUME 84.8 fL (81.0-99.0); PLATELET 148 x1000/uL (130-400); RED BLOOD CELL COUNT 2.94 mill/uL (4.2-5.4); RED CELL DISTRIBUTION WIDTH 18.8 % (11.6-14.6); WHITE BLOOD COUNT 5.9 x1000/uL (4.5-11.0)
[2023-11-05 12:17] LABS: CHLORIDE 102 mEq/L (98-107); POTASSIUM 4.5 mEq/L (3.5-5.1); SODIUM 138 mEq/L (136-145)
[2023-11-05 12:18] LABS: CARBON DIOXIDE 24 mEq/L (21-32)
[2023-11-05] MEDS ORDERED: PANTOPRAZOLE SODIUM 40 MG/VIAL IV SCH (12:30)
[2023-11-05 14:51] LABS: CALCIUM 7.9 mg/dL (8.7-10.4)
[2023-11-05] MEDS: PANTOPRAZOLE 40MG DR TABLET PO SCH (14:55)
[2023-11-05 14:56] LABS: UREA NITROGEN BLOOD 85 mg/dL (9-23)
[2023-11-05 14:58] LABS: PHOSPHORUS 6.2 mg/dL (2.5-4.9)
[2023-11-05 15:04] LABS: GLUCOSE 46 mg/dL (70-105)
[2023-11-05] MEDS: BLOOD SUGAR DIAGNOSTIC STRIP TEST SCH (17:10)
[2023-11-06] VITALS: BP 115/77; PULSE 92; RESP 20; TEMP 98.4
[2023-11-06 04:00] VITALS: BP 110/60; PULSE 82; RESP 20; TEMP 98
[2023-11-06 07:27] LABS: CREATININE 4.9 mg/dL (0.6-1.0)
[2023-11-06 07:59] LABS: HEMATOCRIT 25.4 % (36.0-48.0); HEMOGLOBIN 8.1 g/dL (12.0-16.0); MEAN CORPUSCULAR HGB CONC 31.9 g/dL (31.0-37.0); MEAN CORPUSCULAR VOLUME 84.5 fL (81.0-99.0); PLATELET 131 x1000/uL (130-400); WHITE BLOOD COUNT 7.1 x1000/uL (4.5-11.0)
[2023-11-06 08:00] VITALS: BP 106/58; PULSE 89; RESP 20; TEMP 97.9
[2023-11-06 12:00] VITALS: BP 97/61; PULSE 87; RESP 20; TEMP 99
[2023-11-06] MEDS: VANCOMYCIN 500MG/100ML IV NR (14:26)
[2023-11-06 16:00] VITALS: BP 112/63; PULSE 80; RESP 19; TEMP 99
[2023-11-06 20:00] VITALS: BP 115/64; PULSE 91; RESP 20; TEMP 97.8
[2023-11-06] MEDS: WATER IV SCH (21:53)
[2023-11-06] MEDS: DEXT 5% IV SCH (21:53)
[2023-11-06] MEDS: SULFAMETHOXAZOLE IV SCH (21:53)
[2023-11-06] MEDS: TRIMETHOPRIM IV SCH (21:53)
[2023-11-07] VITALS (8 sets, daily range): BP systolic 99–115; BP diastolic 57–70; PULSE 84–98; RESP 16–19; TEMP 97.4–98.6
[2023-11-07 06:16] LABS: POTASSIUM 4.5 mEq/L (3.5-5.1)
[2023-11-07 06:18] LABS: CALCIUM 8.3 mg/dL (8.7-10.4)
[2023-11-07 06:26] LABS: CREATININE 5.8 mg/dL (0.6-1.0)
[2023-11-07 06:33] LABS: HEMATOCRIT 25.1 % (36.0-48.0); HEMOGLOBIN 8.2 g/dL (12.0-16.0); MEAN CORPUSCULAR HEMOGLOBIN 27.7 pg (28.0-32.0); MEAN CORPUSCULAR HGB CONC 32.6 g/dL (31.0-37.0); MEAN CORPUSCULAR VOLUME 84.8 fL (81.0-99.0); PLATELET 131 x1000/uL (130-400); RED BLOOD CELL COUNT 2.95 mill/uL (4.2-5.4); RED CELL DISTRIBUTION WIDTH 18.6 % (11.6-14.6); WHITE BLOOD COUNT 7.9 x1000/uL (4.5-11.0)
[2023-11-07] MEDS ORDERED: LIDOCAINE HCL/EPINEPHRINE 1%-EPI 1:100,000 20 ML VIAL INFIL NR (12:00)
[2023-11-07] MEDS: MORPHINE SULFATE 4 MG/ML INJ (FOR IV/IM USE) IV PRN (22:05)
[2023-11-08] VITALS: BP 122/55; PULSE 96; RESP 16; TEMP 97.5
[2023-11-08 04:00] VITALS: BP 112/61; PULSE 95; RESP 16; TEMP 97.7
[2023-11-08 07:34] LABS: POTASSIUM 4.4 mEq/L (3.5-5.1)
[2023-11-08 07:35] LABS: CALCIUM 8.3 mg/dL (8.7-10.4)
[2023-11-08 07:41] LABS: CREATININE 5.7 mg/dL (0.6-1.0)
[2023-11-08 07:54] LABS: HEMATOCRIT 23.7 % (36.0-48.0); HEMOGLOBIN 7.8 g/dL (12.0-16.0); MEAN CORPUSCULAR HEMOGLOBIN 27.4 pg (28.0-32.0); MEAN CORPUSCULAR HGB CONC 32.9 g/dL (31.0-37.0); MEAN CORPUSCULAR VOLUME 83.5 fL (81.0-99.0); PLATELET 120 x1000/uL (130-400); RED BLOOD CELL COUNT 2.84 mill/uL (4.2-5.4); RED CELL DISTRIBUTION WIDTH 18.6 % (11.6-14.6); WHITE BLOOD COUNT 8.6 x1000/uL (4.5-11.0)
[2023-11-08 08:00] VITALS: BP 101/56; PULSE 88; RESP 19; TEMP 97.9
[2023-11-08] MEDS: MORPHINE SULFATE 4 MG/ML INJ (FOR IV/IM USE) IV SCH (09:44)
[2023-11-08 12:00] VITALS: BP 117/51; PULSE 95; RESP 18; TEMP 97.9
[2023-11-08 16:00] VITALS: BP 106/65; PULSE 89; RESP 17; TEMP 97.7
[2023-11-08] MEDS ORDERED: NALOXONE HCL 0.4MG/ML VIAL IV PRN (16:30)
[2023-11-08] MEDS: METHADONE HCL 10MG TABLET PO SCH (17:52)
[2023-11-08 20:00] VITALS: BP 113/54; PULSE 90; RESP 16; TEMP 99.3
[2023-11-08] MEDS: LIDOCAINE HCL 1% 10 MG/ML 10ML VIAL ONE (20:24)
[2023-11-08] MEDS: IOHEXOL-300 100 ML BOTTLE ONE (20:24)
[2023-11-09] VITALS (17 sets, daily range): BP systolic 92–140; BP diastolic 52–74; PULSE 75–96; RESP 16–20; TEMP 97.5–98.6
[2023-11-09] MEDS: DEXTROSE 50% WATER 50ML SYRINGE IV PRN (07:38)
[2023-11-09 08:21] LABS: HEMATOCRIT 25.7 % (36.0-48.0); HEMOGLOBIN 8.4 g/dL (12.0-16.0)
[2023-11-09] MEDS: DEXT 5%/0.9% NACL 1,000 ML IV SCH (08:24)
[2023-11-09] MEDS ORDERED: METHADONE HCL 10MG TABLET PO SCH (09:00)
[2023-11-09] MEDS ORDERED: LIDOCAINE HCL 1% 20ML VIAL (Pyxis) INJ ONE ×2 (09:46→09:47)
[2023-11-09] MEDS ORDERED: POLYMYXIN B SULFATE 500000 UNITS/VIAL ONE (09:46)
[2023-11-09] MEDS ORDERED: BUPIVACAINE HCL/PF 0.5% (5MG/ML) 10ML ONE (09:46)
[2023-11-10] VITALS (16 sets, daily range): BP systolic 97–138; BP diastolic 48–67; PULSE 67–95; RESP 16–20; TEMP 97.6–99
[2023-11-10 13:52] LABS: CHLORIDE 104 mEq/L (98-107); POTASSIUM 4.5 mEq/L (3.5-5.1); SODIUM 138 mEq/L (136-145)
[2023-11-10 13:53] LABS: CARBON DIOXIDE 26 mEq/L (21-32)
[2023-11-10 13:58] LABS: CREATININE 5.9 mg/dL (0.6-1.0); GLUCOSE 78 mg/dL (70-105); UREA NITROGEN BLOOD 72 mg/dL (9-23)
[2023-11-10] MEDS ORDERED: IPRATROPIUM/ALBUTEROL 0.5-3(2.5)MG/3ML NEB HHN PRN (18:00)
[2023-11-10] MEDS ORDERED: IPRATROPIUM/ALBUTEROL 0.5-3(2.5)MG/3ML NEB HHN SCH (18:00)
[2023-11-10] MEDS: IPRATROPIUM/ALBUTEROL 0.5-3(2.5)MG/3ML NEB HHN PRN (18:22)
[2023-11-11 04:00] VITALS: BP 129/63; PULSE 97; RESP 16; TEMP 96.8
[2023-11-11 08:00] VITALS: BP 115/56; PULSE 82; RESP 20; TEMP 98.1
[2023-11-11 08:07] LABS: BASOPHILS % 0.5 % (0.0-2.0); EOSINOPHILS % 2.6 % (0.0-5.0); LYMPHOCYTES % 11.3 % (20.0-50.0); MEAN CORPUSCULAR HEMOGLOBIN 27.1 pg (28.0-32.0); MEAN CORPUSCULAR HGB CONC 32.1 g/dL (31.0-37.0); MEAN CORPUSCULAR VOLUME 84.4 fL (81.0-99.0); MEAN PLATELET VOLUME 8.2 fl (7.4-10.4); MONOCYTES % 4.8 % (2.0-8.0); NEUTROPHILS % 80.8 % (40.0-76.0); PLATELET 105 x1000/uL (130-400); RED BLOOD CELL COUNT 2.96 mill/uL (4.2-5.4); RED CELL DISTRIBUTION WIDTH 18.5 % (11.6-14.6); WHITE BLOOD COUNT 11.2 x1000/uL (4.5-11.0)
[2023-11-11 08:09] LABS: POTASSIUM 4.6 mEq/L (3.5-5.1)
[2023-11-11 08:11] LABS: CALCIUM 8.2 mg/dL (8.7-10.4)
[2023-11-11 10:20] LABS: CREATININE 5.6 mg/dL (0.6-1.0)
[2023-11-11 12:00] VITALS: BP 110/58; PULSE 86; RESP 20; TEMP 98.1
[2023-11-11] MEDS: LANTHANUM CARBONATE 500MG CHEW TABLET PO SCH (14:04)
[2023-11-11 16:00] VITALS: BP 131/64; PULSE 97; RESP 18; TEMP 98.2
[2023-11-11 20:00] VITALS: BP 117/66; PULSE 92; RESP 20; TEMP 97.9
[2023-11-12] VITALS (26 sets, daily range): BP systolic 78–119; BP diastolic 51–76; PULSE 76–94; RESP 12–32; TEMP 96.8–97.9
[2023-11-12 05:59] LABS: CHLORIDE 106 mEq/L (98-107); POTASSIUM 5.3 mEq/L (3.5-5.1); SODIUM 139 mEq/L (136-145)
[2023-11-12 06:00] LABS: CARBON DIOXIDE 25 mEq/L (21-32)
[2023-11-12 06:01] LABS: CALCIUM 8.2 mg/dL (8.7-10.4)
[2023-11-12 06:05] LABS: GLUCOSE 67 mg/dL (70-105)
[2023-11-12 06:08] LABS: PHOSPHORUS 5.2 mg/dL (2.5-4.9)
[2023-11-12 06:10] LABS: UREA NITROGEN BLOOD 75 mg/dL (9-23)
[2023-11-12 06:21] LABS: HEMATOCRIT 27.7 % (36.0-48.0); MEAN CORPUSCULAR HEMOGLOBIN 27.7 pg (28.0-32.0); MEAN CORPUSCULAR HGB CONC 32.5 g/dL (31.0-37.0); PLATELET 111 x1000/uL (130-400); RED BLOOD CELL COUNT 3.25 mill/uL (4.2-5.4); RED CELL DISTRIBUTION WIDTH 18.7 % (11.6-14.6); WHITE BLOOD COUNT 12.1 x1000/uL (4.5-11.0)
[2023-11-12 06:57] LABS: CREATININE 6.2 mg/dL (0.6-1.0)
[2023-11-12] MEDS ORDERED: ROCURONIUM BROMIDE 10MG/ML VIAL 5ML IV ONE ×2 (15:16→16:28)
[2023-11-12] MEDS ORDERED: NEOSTIGMINE METHYLSULFATE 1MG/ML 10 ML VIAL ONE (15:16)
[2023-11-12] MEDS ORDERED: SUCCINYLCHOLINE CHLORIDE 200MG/10ML IV ONE (15:16)
[2023-11-12] MEDS ORDERED: ETOMIDATE 2MG/ML 10ML VIAL IV ONE (15:16)
[2023-11-12] MEDS ORDERED: MIDAZOLAM HCL 2 MG/2 ML VIAL ONE ×2 (15:17→16:26)
[2023-11-12] MEDS ORDERED: FENTANYL CITRATE/PF 50MCG/ML 2ML VIAL ONE (15:17)
[2023-11-12] MEDS ORDERED: PROPOFOL 200MG/20ML VIAL IV ONE (15:36)
[2023-11-12] MEDS ORDERED: GLYCOPYRROLATE 0.2 MG/ML 2ML VIAL ONE ×2 (16:20)
[2023-11-12] MEDS: PROPOFOL 10MG/ML 100ML 100 ML IV PRN (17:32)
[2023-11-12 18:11] LABS: BG BASE EXCESS -2.8 mmol/L (-2.0-2.0); BG CARBOXYHEMOGLOBIN 0.3 % (0.5-1.5); BG DEOXYHEMOGLOBIN 1.4 % (0.0-5.0); BG FRACTION INSPIRED OXYGEN 100; BG HCO3 ACT 22.8 mmol/L (22.0-26.0); BG METHEMOGLOBIN 0.3 % (0.0-1.5); BG OXYGEN SATURATION 98.6 % (92.0-98.5); BG PCO2 43.5 mmHg (35.0-45.0); BG PH 7.338 (7.350-7.450); BG PO2 169.6 mmHg (75.0-100.0); BG SAMPLE SITE RIGHT RADIAL; BG TOTAL HEMOGLOBIN 8.3 g/dL (12.0-18.0); BG VENT MODE VENT - AC
[2023-11-12 21:42] LABS: HEMATOCRIT 23.5 % (36.0-48.0); HEMOGLOBIN 7.2 g/dL (12.0-16.0)
[2023-11-13] VITALS (95 sets, daily range): BP systolic 81–140; BP diastolic 48–106; PULSE 77–110; RESP 2–36; TEMP 97.4–99.2
[2023-11-13] MEDS ORDERED: NOREPINEPHRINE 32 MG in DEXT 5% WATER 218 ML IV PRN (01:45)
[2023-11-13] MEDS: MORPHINE SULFATE 4 MG/ML INJ (FOR IV/IM USE) IV PRN (02:01)
[2023-11-13 09:31] LABS: HEMATOCRIT 24.2 % (36.0-48.0); HEMOGLOBIN 7.6 g/dL (12.0-16.0)
[2023-11-13 10:32] LABS: BASOPHILS % 0.8 % (0.0-2.0); HEMATOCRIT. 24.3 % (36.0-48.0); HEMOGLOBIN. 7.8 g/dL (12.0-16.0); LYMPHOCYTES % 10.1 % (20.0-50.0); MEAN CORPUSCULAR HEMOGLOBIN 27.5 pg (28.0-32.0); MEAN CORPUSCULAR HGB CONC 32.2 g/dL (31.0-37.0); MEAN CORPUSCULAR VOLUME 85.4 fL (81.0-99.0); MEAN PLATELET VOLUME 8.3 fl (7.4-10.4); MONOCYTES % 4.1 % (2.0-8.0); PLATELET 93 x1000/uL (130-400); RED BLOOD CELL COUNT 2.84 mill/uL (4.2-5.4)
[2023-11-13 10:53] LABS: POTASSIUM 5.4 mEq/L (3.5-5.1)
[2023-11-13 10:54] LABS: CALCIUM 8.1 mg/dL (8.7-10.4)
[2023-11-13 11:44] LABS: CREATININE 6.7 mg/dL (0.6-1.0)
[2023-11-13] MEDS: HYDROMORPHONE HCL/PF 2MG/ML CPJ IV NR (20:52)
[2023-11-13] MEDS ORDERED: NALOXONE HCL 0.4MG/ML VIAL IV PRN (21:00)
[2023-11-14] VITALS (36 sets, daily range): BP systolic 96–134; BP diastolic 31–108; PULSE 90–110; RESP 15–34; TEMP 97–98.5
[2023-11-14 05:12] LABS: BASOPHILS % 0.7 % (0.0-2.0); EOSINOPHILS % 1.9 % (0.0-5.0); HEMATOCRIT. 22.8 % (36.0-48.0); HEMOGLOBIN. 7.2 g/dL (12.0-16.0); MEAN CORPUSCULAR HEMOGLOBIN 27.4 pg (28.0-32.0); MEAN CORPUSCULAR HGB CONC 31.7 g/dL (31.0-37.0); MEAN CORPUSCULAR VOLUME 86.4 fL (81.0-99.0); MEAN PLATELET VOLUME 8.4 fl (7.4-10.4); MONOCYTES % 4.6 % (2.0-8.0); NEUTROPHILS % 80.8 % (40.0-76.0); PLATELET 96 x1000/uL (130-400); RED BLOOD CELL COUNT 2.63 mill/uL (4.2-5.4); RED CELL DISTRIBUTION WIDTH 18.4 % (11.6-14.6)
[2023-11-14 05:15] LABS: POTASSIUM 4.6 mEq/L (3.5-5.1)
[2023-11-14 05:21] LABS: CREATININE 4.9 mg/dL (0.6-1.0)
[2023-11-15] VITALS (49 sets, daily range): BP systolic 51–139; BP diastolic 18–102; PULSE 85–112; RESP 17–30; TEMP 97.3–98.6
[2023-11-15 06:42] LABS: EOSINOPHILS % 1.2 % (0.0-5.0); HEMOGLOBIN 7.7 g/dL (12.0-16.0); HEMOGLOBIN. 7.7 g/dL (12.0-16.0); LYMPHOCYTES % 13.5 % (20.0-50.0); MEAN CORPUSCULAR HEMOGLOBIN 27.4 pg (28.0-32.0); MEAN CORPUSCULAR HGB CONC 32.1 g/dL (31.0-37.0); MEAN CORPUSCULAR VOLUME 85.4 fL (81.0-99.0); MEAN PLATELET VOLUME 8.3 fl (7.4-10.4); NEUTROPHILS % 79.3 % (40.0-76.0); PLATELET 103 x1000/uL (130-400); RED BLOOD CELL COUNT 2.81 mill/uL (4.2-5.4); RED CELL DISTRIBUTION WIDTH 18.3 % (11.6-14.6); WHITE BLOOD COUNT 14.9 x1000/uL (4.5-11.0)
[2023-11-15 06:58] LABS: CALCIUM 8.3 mg/dL (8.7-10.4)
[2023-11-15 08:18] LABS: CREATININE 5.7 mg/dL (0.6-1.0)
[2023-11-16] VITALS: BP 118/76; PULSE 102; RESP 17; TEMP 98.1
[2023-11-16] MEDS: DAPTOMYCIN 500 MG in SODIUM CHLORIDE 0.9% 100 ML IV NR (00:01)
[2023-11-16] MEDS: MEROPENEM 1G/100ML 100 ML IV SCH (00:01)
[2023-11-16 04:00] VITALS: PULSE 99; RESP 14
[2023-11-16 08:00] VITALS: PULSE 80; RESP 14; TEMP 98
[2023-11-16 12:00] VITALS: BP 122/90; PULSE 111; RESP 22; TEMP 98.5
[2023-11-16] MEDS: FLUCONAZOLE 150MG TABLET PO NR (13:11)
[2023-11-16] MEDS ORDERED: SENNOSIDES 8.6MG TABLET PO PRN (13:45)
[2023-11-16] MEDS: POLYETHYLENE GLYCOL 3350 (17GM) 1 DOSE PACK PO SCH (14:48)
[2023-11-16 16:00] VITALS: BP 119/75; PULSE 104; RESP 18; TEMP 98.7
[2023-11-16 20:00] VITALS: BP 138/58; PULSE 102; RESP 19; TEMP 98.4
[2023-11-16] MEDS: CLOTRIMAZOLE/BETAMETHASONE 1/0.05% CREAM 15GM TOP SCH (21:31)
[2023-11-17] VITALS: BP 121/58; PULSE 93; RESP 19; TEMP 98.9
[2023-11-17 04:00] VITALS: BP_SYST 106; BP_SYST 119; BP_DIAS 56; BP_DIAS 88; PULSE 88; RESP 18; RESP 19; TEMP 97.6; TEMP 97.8
[2023-11-17 08:00] VITALS: BP 114/64; PULSE 100; RESP 20; TEMP 98
[2023-11-17] MEDS: METHADONE HCL 10MG TABLET PO SCH (08:22)
[2023-11-17 11:28] LABS: CREATINE KINASE < 15 IU/L (34-145)
[2023-11-17 12:00] VITALS: BP 112/93; PULSE 99; RESP 20; TEMP 97.6
[2023-11-17 16:00] VITALS: BP 116/91; PULSE 98; RESP 20; TEMP 97.5
[2023-11-17 20:00] VITALS: BP 122/75; PULSE 99; RESP 19; TEMP 100.4
[2023-11-17] MEDS: DEXT 5%/0.9% NACL 1,000 ML IV ONE (20:45)
[2023-11-17] MEDS: DAPTOMYCIN 500 MG in SODIUM CHLORIDE 0.9% 100 ML IV SCH (22:23)
[2023-11-18] VITALS (21 sets, daily range): BP systolic 100–129; BP diastolic 45–81; PULSE 84–104; RESP 16–20; TEMP 97.2–99.3
[2023-11-18 07:14] LABS: DIFFERENTIAL COMMENT 0; EOSINOPHILS % 1.8 % (0.0-5.0); LYMPHOCYTES % 14.1 % (20.0-50.0); MEAN CORPUSCULAR HEMOGLOBIN 27.4 pg (28.0-32.0); MEAN CORPUSCULAR HGB CONC 32.2 g/dL (31.0-37.0); MEAN CORPUSCULAR VOLUME 85.1 fL (81.0-99.0); MEAN PLATELET VOLUME 8.5 fl (7.4-10.4); MONOCYTES % 7.5 % (2.0-8.0); NEUTROPHILS % 75.6 % (40.0-76.0); PLATELET 96 x1000/uL (130-400); RED BLOOD CELL COUNT 2.13 mill/uL (4.2-5.4); RED CELL DISTRIBUTION WIDTH 17.8 % (11.6-14.6); WHITE BLOOD COUNT 11.1 x1000/uL (4.5-11.0)
[2023-11-18 07:44] LABS: POTASSIUM 5.1 mEq/L (3.5-5.1)
[2023-11-18 07:45] LABS: CALCIUM 7.8 mg/dL (8.7-10.4)
[2023-11-18 07:57] LABS: CREATININE 6.6 mg/dL (0.6-1.0)
[2023-11-18 08:31] LABS: HEMATOCRIT. 18.2 % (36.0-48.0); HEMOGLOBIN. 5.9 g/dL (12.0-16.0)
[2023-11-18] MEDS ORDERED: ACETAMINOPHEN 325MG TABLET PO PRN (12:00)
[2023-11-18 16:16] LABS: HEMATOCRIT 26.8 % (36.0-48.0); HEMOGLOBIN 8.8 g/dL (12.0-16.0)
[2023-11-18] MEDS: MORPHINE SULFATE 4 MG/ML INJ (FOR IV/IM USE) IV PRN (16:49)
[2023-11-18] MEDS: BLOOD SUGAR DIAGNOSTIC STRIP TEST SCH (20:00)
[2023-11-18] MEDS: DEXT 10% WATER 1,000 ML IV SCH (20:45)
[2023-11-19] VITALS: BP 100/53; PULSE 102; RESP 20; TEMP 98.1
[2023-11-19 04:00] VITALS: BP 104/59; PULSE 98; RESP 20; TEMP 98.2
[2023-11-19 08:00] VITALS: BP 118/75; PULSE 91; RESP 20; TEMP 97.8
[2023-11-19 12:00] VITALS: BP 123/75; PULSE 94; RESP 20; TEMP 97.8
[2023-11-19] MEDS ORDERED: NALOXONE HCL 0.4MG/ML VIAL IV PRN (15:15)
[2023-11-19 16:00] VITALS: BP 119/72; PULSE 90; RESP 20; TEMP 97.8
[2023-11-19 20:00] VITALS: BP 132/76; PULSE 97; RESP 20; TEMP 97.9
[2023-11-19 22:03] LABS: BASOPHILS % 0.7 % (0.0-2.0); EOSINOPHILS % 1.3 % (0.0-5.0); HEMATOCRIT. 24.3 % (36.0-48.0); HEMOGLOBIN. 7.9 g/dL (12.0-16.0); MEAN CORPUSCULAR HEMOGLOBIN 27.2 pg (28.0-32.0); MEAN CORPUSCULAR HGB CONC 32.6 g/dL (31.0-37.0); MEAN CORPUSCULAR VOLUME 83.5 fL (81.0-99.0); MONOCYTES % 7.2 % (2.0-8.0); NEUTROPHILS % 75.8 % (40.0-76.0); PLATELET 98 x1000/uL (130-400); POTASSIUM 4.6 mEq/L (3.5-5.1); RED BLOOD CELL COUNT 2.91 mill/uL (4.2-5.4); RED CELL DISTRIBUTION WIDTH 19.7 % (11.6-14.6); WHITE BLOOD COUNT 13.3 x1000/uL (4.5-11.0)
[2023-11-19 22:05] LABS: CALCIUM 7.4 mg/dL (8.7-10.4)
[2023-11-20] VITALS (11 sets, daily range): BP systolic 96–126; BP diastolic 55–72; PULSE 89–105; RESP 18–20; TEMP 97–98.4
[2023-11-20 07:19] LABS: POTASSIUM 4.8 mEq/L (3.5-5.1)
[2023-11-20 07:20] LABS: CALCIUM 7.5 mg/dL (8.7-10.4)
[2023-11-20 07:28] LABS: BASOPHILS % 0.8 % (0.0-2.0); EOSINOPHILS % 1.2 % (0.0-5.0); HEMATOCRIT. 26.3 % (36.0-48.0); HEMOGLOBIN. 8.4 g/dL (12.0-16.0); LYMPHOCYTES % 16.7 % (20.0-50.0); MEAN CORPUSCULAR HEMOGLOBIN 26.8 pg (28.0-32.0); MEAN CORPUSCULAR HGB CONC 32.2 g/dL (31.0-37.0); MEAN CORPUSCULAR VOLUME 83.4 fL (81.0-99.0); MEAN PLATELET VOLUME 8.4 fl (7.4-10.4); MONOCYTES % 8.6 % (2.0-8.0); NEUTROPHILS % 72.7 % (40.0-76.0); PLATELET 94 x1000/uL (130-400); RED BLOOD CELL COUNT 3.15 mill/uL (4.2-5.4); RED CELL DISTRIBUTION WIDTH 19.9 % (11.6-14.6); WHITE BLOOD COUNT 11.2 x1000/uL (4.5-11.0)
[2023-11-20 07:35] LABS: CREATININE 6.3 mg/dL (0.6-1.0)
[2023-11-20] MEDS: EPOETIN ALFA 4000UNITS/ML VIAL SUBCUT SCH (22:00)
[2023-11-21] VITALS: BP 118/65; PULSE 102; RESP 20; TEMP 99.5
[2023-11-21 04:00] VITALS: BP 120/78; PULSE 103; RESP 20; TEMP 97.7
[2023-11-21 07:58] LABS: PHOSPHORUS 5.9 mg/dL (2.5-4.9)
[2023-11-21 08:00] VITALS: BP 118/65; PULSE 97; RESP 20; TEMP 98.1
[2023-11-21 12:00] VITALS: BP 120/76; PULSE 96; RESP 20; TEMP 98.1
[2023-11-21 16:00] VITALS: BP 113/60; PULSE 89; RESP 20; TEMP 98
[2023-11-21 20:00] VITALS: BP 117/61; PULSE 94; RESP 18; TEMP 97.5
[2023-11-22] VITALS (13 sets, daily range): BP systolic 104–149; BP diastolic 54–91; PULSE 87–99; RESP 18–20; TEMP 96.6–98.9
[2023-11-22 18:06] LABS: HEMATOCRIT. 21.8 % (36.0-48.0); HEMOGLOBIN. 7.1 g/dL (12.0-16.0); LYMPHOCYTES % 15.2 % (20.0-50.0); MEAN CORPUSCULAR HEMOGLOBIN 27.6 pg (28.0-32.0); MEAN CORPUSCULAR HGB CONC 32.8 g/dL (31.0-37.0); MEAN CORPUSCULAR VOLUME 84.2 fL (81.0-99.0); MEAN PLATELET VOLUME 8.1 fl (7.4-10.4); MONOCYTES % 8.8 % (2.0-8.0); PLATELET 103 x1000/uL (130-400); RED BLOOD CELL COUNT 2.59 mill/uL (4.2-5.4); RED CELL DISTRIBUTION WIDTH 19.1 % (11.6-14.6); WHITE BLOOD COUNT 9.1 x1000/uL (4.5-11.0)
[2023-11-22 18:09] LABS: POTASSIUM 3.8 mEq/L (3.5-5.1)
[2023-11-22 18:11] LABS: CALCIUM 7.2 mg/dL (8.7-10.4)
[2023-11-22 18:15] LABS: CREATININE 4.5 mg/dL (0.6-1.0)
[2023-11-23] VITALS: BP 129/79; PULSE 104; RESP 18; TEMP 97.5
[2023-11-23 04:00] VITALS: BP 111/60; PULSE 96; RESP 18; TEMP 97.5
[2023-11-23 07:15] LABS: BASOPHILS % 0.7 % (0.0-2.0); EOSINOPHILS % 2.4 % (0.0-5.0); HEMATOCRIT. 23.6 % (36.0-48.0); HEMOGLOBIN. 7.6 g/dL (12.0-16.0); LYMPHOCYTES % 19.9 % (20.0-50.0); MEAN CORPUSCULAR HEMOGLOBIN 26.9 pg (28.0-32.0); MEAN CORPUSCULAR HGB CONC 32.3 g/dL (31.0-37.0); MEAN CORPUSCULAR VOLUME 83.2 fL (81.0-99.0); MONOCYTES % 9.7 % (2.0-8.0); NEUTROPHILS % 67.3 % (40.0-76.0); PLATELET 112 x1000/uL (130-400); RED BLOOD CELL COUNT 2.83 mill/uL (4.2-5.4); WHITE BLOOD COUNT 10.1 x1000/uL (4.5-11.0)
[2023-11-23 07:20] LABS: CALCIUM 7.6 mg/dL (8.7-10.4); POTASSIUM 4.2 mEq/L (3.5-5.1)
[2023-11-23 07:26] LABS: CREATININE 4.7 mg/dL (0.6-1.0)
[2023-11-23 08:00] VITALS: BP 124/81; PULSE 98; RESP 19; TEMP 98.7
[2023-11-23] MEDS: METOPROLOL SUCCINATE 25MG ER TABLET PO SCH (09:47)
[2023-11-23 12:00] VITALS: BP 128/73; PULSE 96; RESP 20; TEMP 97.7
[2023-11-23] MEDS: METHADONE HCL 10MG TABLET PO SCH (14:44)
[2023-11-23 16:00] VITALS: BP 116/76; PULSE 108; RESP 19; TEMP 96.4
[2023-11-23 20:00] VITALS: BP 120/65; PULSE 98; RESP 19; TEMP 97.5
[2023-11-23] MEDS: MORPHINE SULFATE 4 MG/ML INJ (FOR IV/IM USE) IV PRN (20:59)
[2023-11-24] VITALS: BP 107/64; PULSE 93; RESP 17; TEMP 97.5
[2023-11-24 04:00] VITALS: BP 125/72; PULSE 95; RESP 20; TEMP 98.1
[2023-11-24 06:28] LABS: CREATINE KINASE < 15 IU/L (34-145)
[2023-11-24 08:00] VITALS: BP 114/69; PULSE 90; RESP 17; TEMP 96
[2023-11-24 12:00] VITALS: BP 118/69; PULSE 50; RESP 18; TEMP 97.9
[2023-11-24 16:00] VITALS: BP 105/63; PULSE 86; RESP 18; TEMP 97.9
[2023-11-24 20:00] VITALS: BP 104/63; PULSE 76; RESP 19; TEMP 97.5
[2023-11-25] VITALS (14 sets, daily range): BP systolic 100–130; BP diastolic 56–84; PULSE 61–94; RESP 16–19; TEMP 96.5–98
[2023-11-25 06:45] LABS: BASOPHILS % 0.6 % (0.0-2.0); EOSINOPHILS % 2.2 % (0.0-5.0); LYMPHOCYTES % 17.9 % (20.0-50.0); MEAN CORPUSCULAR HEMOGLOBIN 27.6 pg (28.0-32.0); MEAN CORPUSCULAR HGB CONC 33.2 g/dL (31.0-37.0); MEAN CORPUSCULAR VOLUME 83.3 fL (81.0-99.0); MEAN PLATELET VOLUME 7.9 fl (7.4-10.4); MONOCYTES % 10.4 % (2.0-8.0); NEUTROPHILS % 68.9 % (40.0-76.0); PLATELET 130 x1000/uL (130-400); RED BLOOD CELL COUNT 2.53 mill/uL (4.2-5.4); RED CELL DISTRIBUTION WIDTH 18.9 % (11.6-14.6); WHITE BLOOD COUNT 9.9 x1000/uL (4.5-11.0)
[2023-11-25 06:54] LABS: POTASSIUM 4.8 mEq/L (3.5-5.1)
[2023-11-25 06:55] LABS: CALCIUM 7.8 mg/dL (8.7-10.4)
[2023-11-25 07:13] LABS: CREATININE 6.3 mg/dL (0.6-1.0)
[2023-11-25] MEDS ORDERED: NALOXONE HCL 0.4MG/ML VIAL IV PRN (08:00)
[2023-11-25] MEDS ORDERED: EPOETIN ALFA 10000UNITS/ML VIAL SUBCUT SCH (21:00)
[2023-11-25] MEDS: EPOETIN ALFA 4000UNITS/ML VIAL SUBCUT SCH (21:08)
[2023-11-26] VITALS: BP 114/78; PULSE 88; RESP 19; TEMP 98.7
[2023-11-26 04:00] VITALS: BP 118/68; PULSE 87; RESP 19; TEMP 97.7
[2023-11-26 08:00] VITALS: BP 112/66; PULSE 96; RESP 19; TEMP 99
[2023-11-26] MEDS: MORPHINE SULFATE 2 MG/ML CPJ (NOT FOR IM USE) IV PRN (11:48)
[2023-11-26 12:00] VITALS: BP 95/68; PULSE 95; RESP 21; TEMP 98.7
[2023-11-26 14:31] VITALS: BP 104/65; PULSE 88; TEMP 97.7; O2SAT 97
== END 2023-11-26 15:39 | disposition home health service (06) | DRG 710 ==
LOC: ER 02:38 → EDBEDREQ 07:26 → EDBEDREQTM 07:26 → 5EST 11:18 → MICUNO 10-26 11:19 → 5EST 10-27 19:45 → MICUSO 10-31 21:00 → 8WST 11-03 14:20 → 6EST 11-07 11:17 → CVICU 11-12 18:33 → 3WST 11-15 21:33 → 6EST 11-16 20:10
PROVIDERS: ADMIT Internal Medicine; ATTEND Internal Medicine
PROC: 0H9U0ZZ Drainage of Left Breast, Open Approach (ICD-10-PCS; principal; 2023-10-20)
PROC: 30233N1 Transfusion of Nonautologous Red Blood Cells into Peripheral Vein, Percutaneous Approach (ICD-10-PCS; 2023-10-20)
PROC: 05HM33Z Insertion of Infusion Device into Right Internal Jugular Vein, Percutaneous Approach (ICD-10-PCS; 2023-10-21)
PROC: B543ZZA Ultrasonography of Right Jugular Veins, Guidance (ICD-10-PCS; 2023-10-21)
PROC: 5A1D70Z Performance of Urinary Filtration, Intermittent, Less than 6 Hours Per Day (ICD-10-PCS; 2023-10-21)
PROC: 5A1D70Z Performance of Urinary Filtration, Intermittent, Less than 6 Hours Per Day (ICD-10-PCS; 2023-10-22)
PROC: 0JB60ZZ Excision of Chest Subcutaneous Tissue and Fascia, Open Approach (ICD-10-PCS; 2023-10-24)
PROC: 5A1D70Z Performance of Urinary Filtration, Intermittent, Less than 6 Hours Per Day (ICD-10-PCS; 2023-10-25)
PROC: 0KBJ0ZZ Excision of Left Thorax Muscle, Open Approach (ICD-10-PCS; 2023-10-26)
PROC: 5A1935Z Respiratory Ventilation, Less than 24 Consecutive Hours (ICD-10-PCS; 2023-10-26)
PROC: 0BH17EZ Insertion of Endotracheal Airway into Trachea, Via Natural or Artificial Opening (ICD-10-PCS; 2023-10-26)
PROC: 5A1D70Z Performance of Urinary Filtration, Intermittent, Less than 6 Hours Per Day (ICD-10-PCS; 2023-10-26)
PROC: 0JB60ZZ Excision of Chest Subcutaneous Tissue and Fascia, Open Approach (ICD-10-PCS; 2023-10-26)
PROC: 02HV33Z Insertion of Infusion Device into Superior Vena Cava, Percutaneous Approach (ICD-10-PCS; 2023-10-27)
PROC: B548ZZA Ultrasonography of Superior Vena Cava, Guidance (ICD-10-PCS; 2023-10-27)
PROC: 5A1D70Z Performance of Urinary Filtration, Intermittent, Less than 6 Hours Per Day (ICD-10-PCS; 2023-10-28)
PROC: 0KBT0ZZ Excision of Left Lower Leg Muscle, Open Approach (ICD-10-PCS; 2023-10-29)
PROC: 0KBS0ZZ Excision of Right Lower Leg Muscle, Open Approach (ICD-10-PCS; 2023-10-29)
PROC: B24BZZ4 Ultrasonography of Heart with Aorta, Transesophageal (ICD-10-PCS; 2023-10-30)
PROC: 5A1D70Z Performance of Urinary Filtration, Intermittent, Less than 6 Hours Per Day (ICD-10-PCS; 2023-10-30)
PROC: 5A1935Z Respiratory Ventilation, Less than 24 Consecutive Hours (ICD-10-PCS; 2023-10-31)
PROC: 5A1D70Z Performance of Urinary Filtration, Intermittent, Less than 6 Hours Per Day (ICD-10-PCS; 2023-11-01)
PROC: 5A1D70Z Performance of Urinary Filtration, Intermittent, Less than 6 Hours Per Day (ICD-10-PCS; 2023-11-03)
PROC: 0JH63XZ Insertion of Tunneled Vascular Access Device into Chest Subcutaneous Tissue and Fascia, Percutaneous Approach (ICD-10-PCS; 2023-11-05)
PROC: 02HV33Z Insertion of Infusion Device into Superior Vena Cava, Percutaneous Approach (ICD-10-PCS; 2023-11-05)
PROC: B5181ZA Fluoroscopy of Superior Vena Cava using Low Osmolar Contrast, Guidance (ICD-10-PCS; 2023-11-05)
PROC: 5A1D70Z Performance of Urinary Filtration, Intermittent, Less than 6 Hours Per Day (ICD-10-PCS; 2023-11-05)
PROC: 5A1D70Z Performance of Urinary Filtration, Intermittent, Less than 6 Hours Per Day (ICD-10-PCS; 2023-11-07)
PROC: 0KBT0ZZ Excision of Left Lower Leg Muscle, Open Approach (ICD-10-PCS; 2023-11-08)
PROC: 0KBS0ZZ Excision of Right Lower Leg Muscle, Open Approach (ICD-10-PCS; 2023-11-08)
PROC: 0DT60ZZ Resection of Stomach, Open Approach (ICD-10-PCS; 2023-11-09)
PROC: 5A1D70Z Performance of Urinary Filtration, Intermittent, Less than 6 Hours Per Day (ICD-10-PCS; 2023-11-09)
PROC: 5A1D70Z Performance of Urinary Filtration, Intermittent, Less than 6 Hours Per Day (ICD-10-PCS; 2023-11-10)
PROC: 5A1935Z Respiratory Ventilation, Less than 24 Consecutive Hours (ICD-10-PCS; 2023-11-12)
PROC: 0JBL0ZZ Excision of Right Upper Leg Subcutaneous Tissue and Fascia, Open Approach (ICD-10-PCS; 2023-11-12)
PROC: 5A1D70Z Performance of Urinary Filtration, Intermittent, Less than 6 Hours Per Day (ICD-10-PCS; 2023-11-13)
PROC: 5A1D70Z Performance of Urinary Filtration, Intermittent, Less than 6 Hours Per Day (ICD-10-PCS; 2023-11-15)
PROC: 5A1D70Z Performance of Urinary Filtration, Intermittent, Less than 6 Hours Per Day (ICD-10-PCS; 2023-11-18)
PROC: 5A1D70Z Performance of Urinary Filtration, Intermittent, Less than 6 Hours Per Day (ICD-10-PCS; 2023-11-20)
PROC: 5A1D70Z Performance of Urinary Filtration, Intermittent, Less than 6 Hours Per Day (ICD-10-PCS; 2023-11-22)
PROC: 5A1D70Z Performance of Urinary Filtration, Intermittent, Less than 6 Hours Per Day (ICD-10-PCS; 2023-11-25)
DX: A41.01 Sepsis due to Methicillin susceptible Staphylococcus aureus (principal); N17.0 Acute kidney failure with tubular necrosis; J96.00 Acute respiratory failure, unspecified whether with hypoxia or hypercapnia; M72.6 Necrotizing fasciitis; K25.5 Chronic or unspecified gastric ulcer with perforation; I50.23 Acute on chronic systolic (congestive) heart failure; N18.6 End stage renal disease; E83.39 Other disorders of phosphorus metabolism; D62 Acute posthemorrhagic anemia; J18.9 Pneumonia, unspecified organism; E46 Unspecified protein-calorie malnutrition; I13.2 Hypertensive heart and chronic kidney disease with heart failure and with stage 5 chronic kidney disease, or end stage renal disease; E66.2 Morbid (severe) obesity with alveolar hypoventilation; Z68.41 Body mass index [BMI] 40.0-44.9, adult; I73.9 Peripheral vascular disease, unspecified; M06.9 Rheumatoid arthritis, unspecified; F19.10 Other psychoactive substance abuse, uncomplicated; Z99.2 Dependence on renal dialysis; E83.51 Hypocalcemia; L02.213 Cutaneous abscess of chest wall; G62.0 Drug-induced polyneuropathy; L97.829 Non-pressure chronic ulcer of other part of left lower leg with unspecified severity; L97.819 Non-pressure chronic ulcer of other part of right lower leg with unspecified severity; L03.115 Cellulitis of right lower limb; L03.116 Cellulitis of left lower limb; N61.1 Abscess of the breast and nipple; I95.9 Hypotension, unspecified; E87.5 Hyperkalemia; N64.89 Other specified disorders of breast; R65.20 Severe sepsis without septic shock; I25.10 Atherosclerotic heart disease of native coronary artery without angina pectoris; K66.0 Peritoneal adhesions (postprocedural) (postinfection); F17.210 Nicotine dependence, cigarettes, uncomplicated; S22.32XA Fracture of one rib, left side, initial encounter for closed fracture; Z93.3 Colostomy status; J98.01 Acute bronchospasm; B96.89 Other specified bacterial agents as the cause of diseases classified elsewhere; W18.30XA Fall on same level, unspecified, initial encounter; Y93.89 Activity, other specified; Y92.009 Unspecified place in unspecified non-institutional (private) residence as the place of occurrence of the external cause; Y99.8 Other external cause status
CPT/HCPCS: 31500; 36415; 36556; 36558; 36573; 36589; 36600; 71045; 71250; 71260; 74018; 74176; 76604; 76770; 76937; 77001; 80048; 80053; 80202; 80320; 82040; 82375; 82533; 82550; 82805; 82962; 83036; 83605; 83735; 83880; 83970; 84100; 84134; 84145; 84155; 84165; 84478; 84703; 85014; 85018; 85025; 85027; 86705; 86706; 86709; 86850; 86900; 86920; 87070; 87075; 87077; 87186; 87340; 88304; 88305; 88307; 88311; 90935; 93005; 93306; 93312; 93970; 94002; 94003; 94640; 97110; 97162; 97166; 99152; 99153; 99291; A6261; C1725; C1750; C1752; C1769; C1893; J0330; J0610; J0690; J0692; J0878; J0885; J1100; J1170; J1642; J1644; J1815; J2185; J2250; J2270; J2405; J2543; J2704; J2710; J2765; J3010; J3370; J3475; J3490; J7030; J7042; J7050; J7060; J7070; P9016; P9047; Q9967; A4315; G0480; G0500